=== PATIENT | female | born 1960 | race Two or more races ===

== ENCOUNTER → 2019-08-06 | Outpatient (CLI) | payer OTHER ==
[~2019-08-06] VITALS: Ht 170.2 cm; Wt 72.6 kg
[~2019-08-06] MED LIST: FLONASE16 GM NASAL; ZYRTEC10 MG PO
== END | disposition home or self-care (01) ==
LOC: OFIC 805 09:55
DX: J31.0 Chronic rhinitis (principal); J34.2 Deviated nasal septum; R06.83 Snoring; R05 Cough

== ENCOUNTER 2019-09-03 09:54 | Outpatient (CLI) | payer OTHER ==
[~2019-09-03] VITALS: Ht 152.4 cm; Wt 72.6 kg
== END 2019-09-03 12:44 | disposition home or self-care (01) ==
LOC: OFIC 805 09:54
DX: J31.0 Chronic rhinitis (principal); J34.2 Deviated nasal septum; R06.83 Snoring; R05 Cough